=== PATIENT | male | born 1965 | race Caucasian/White ===

== ENCOUNTER 2016-06-10 17:14 | Outpatient (CLI) | payer BC ==
[2016-06-10 20:27] LABS: ALT (SGPT) 27 U/L (0-55); AST (SGOT) 25 U/L (5-34); Alkaline Phosphatase 52 U/L (40-150); Anion Gap 14 mmol/L (10-20); BUN (Urea Nitrogen) 20 mg/dL (8.9-20.6); Bilirubin, Total 0.9 mg/dL (0.2-1.2); Calc. Creatinine Clearance 0 mL/min (70-130); Calcium 8.9 mg/dL (7.8-10.44); Carbon Dioxide 22 mmol/L (22-29); Chloride 110 mmol/L (98-107); Estimated GFR-MDRD 64; Globulin 2.9 g/dL (2.4-3.5); LDL Cholesterol, Calculated 161 mg/dL; Protein, Total 7.2 g/dL (6.0-8.3)
== END 2016-06-10 17:15 | disposition home or self-care (01) ==
LOC: NAV SJFMSP 17:14
PROVIDERS: ATTEND Family Medicine
DX: E03.9 Hypothyroidism, unspecified (principal); E78.5 Hyperlipidemia, unspecified
CPT/HCPCS: 80053; 80061; 84439; 84443